=== PATIENT | male | born 1985 | race Hispanic/Latino ===

== ENCOUNTER 2022-08-08 14:48 | Outpatient (CLI) | payer OTHER | END 2022-08-08 14:49 | disposition home or self-care (01) | LOC: CSHWCC 14:48 | PROVIDERS: ATTEND Nurse Practitioner Family | DX: T87.89 Other complications of amputation stump (principal); Z89.512 Acquired absence of left leg below knee; Z89.511 Acquired absence of right leg below knee; Z89.202 Acquired absence of left upper limb, unspecified level | CPT/HCPCS: 11042; 97605; 99204; G0463 ==

== ENCOUNTER → 2022-08-11 | Outpatient (CLI) | payer OTHER | LOC: CSHWCC 15:48 | PROVIDERS: ATTEND Nurse Practitioner Family | DX: T87.89 Other complications of amputation stump (principal); Z89.511 Acquired absence of right leg below knee ==

== ENCOUNTER 2022-08-15 08:45 | Outpatient (CLI) | payer OTHER | END 2022-08-15 08:46 | disposition home or self-care (01) | LOC: CSHWCC 08:45 | PROVIDERS: ATTEND Nurse Practitioner Family | DX: T87.89 Other complications of amputation stump (principal) | CPT/HCPCS: 11042; 97605 ==